=== PATIENT | female | born 1960 | race Two or more races ===

== ENCOUNTER → 2019-01-11 09:39 | Outpatient (CLI) | payer OTHER ==
[~2019-01-11 09:39] MED LIST: KLONOPIN0.25 MG/TA PO
== END | disposition home or self-care (01) ==
LOC: LAB 09:28
DX: D64.89 Other specified anemias (principal); E78.2 Mixed hyperlipidemia; E03.8 Other specified hypothyroidism; N39.0 Urinary tract infection, site not specified; Z12.11 Encounter for screening for malignant neoplasm of colon; M79.18 Myalgia, other site

== ENCOUNTER 2019-01-11 10:11 | Outpatient (CLI) | payer OTHER | END 2019-01-11 10:21 | disposition home or self-care (01) | LOC: RAD 10:11 | DX: N60.11 Diffuse cystic mastopathy of right breast (principal); N60.12 Diffuse cystic mastopathy of left breast; R10.84 Generalized abdominal pain; M54.5 Low back pain ==

== ENCOUNTER → 2019-09-20 | Outpatient (CLI) | payer OTHER | END | disposition home or self-care (01) | LOC: MRI 13:45 → MAMO-SONO 13:45 → SONOGRAMA 13:55 | PROVIDERS: ATTEND Orthopaedic Surgery | DX: M25.512 Pain in left shoulder (principal); M25.561 Pain in right knee; M25.562 Pain in left knee ==

== ENCOUNTER 2020-03-18 11:12 | Outpatient (CLI) | payer OTHER | END 2020-03-18 11:36 | disposition home or self-care (01) | LOC: MAMO-SONO 11:12 | PROVIDERS: ATTEND General Practice | DX: N60.02 Solitary cyst of left breast (principal); Z12.31 Encounter for screening mammogram for malignant neoplasm of breast ==

== ENCOUNTER 2022-05-06 13:45 | Outpatient (CLI) | payer OTHER | END 2022-05-06 13:47 | disposition home or self-care (01) | LOC: NUCLEAR 13:45 | PROVIDERS: ATTEND Internal Medicine | DX: M85.80 Other specified disorders of bone density and structure, unspecified site (principal) ==

== ENCOUNTER 2022-05-06 14:18 | Outpatient (CLI) | payer OTHER | END 2022-05-06 14:34 | disposition home or self-care (01) | LOC: RAD 14:18 | PROVIDERS: ATTEND General Practice | DX: J30.9 Allergic rhinitis, unspecified (principal); J01.90 Acute sinusitis, unspecified ==

== ENCOUNTER 2022-05-06 15:25 | Outpatient (CLI) | payer OTHER | END 2022-05-06 15:27 | disposition home or self-care (01) | LOC: LAB 15:25 | PROVIDERS: ATTEND General Practice | DX: E03.8 Other specified hypothyroidism (principal) ==

== ENCOUNTER 2024-01-29 10:12 | Outpatient (CLI) | payer OTHER | END 2024-01-29 10:15 | disposition home or self-care (01) | LOC: SONOGRAMA 10:12 | PROVIDERS: ATTEND Pathology Anatomic Pathology | DX: E04.2 Nontoxic multinodular goiter (principal) ==